=== PATIENT | female | born 1980 | race Hispanic/Latino ===

== ENCOUNTER 2018-11-23 14:11 | Observation (INO) | payer SELFPAY ==
[~2018-11-23] VITALS: Ht 160 cm; Wt 83.9 kg
[2018-11-23] MEDS ORDERED: ONDANSETRON ODT 4 MG TAB ONE (15:16)
[2018-11-23] MEDS ORDERED: FAMOTIDINE 20MG TAB 20 MG TAB ONE (15:16)
[2018-11-23 15:23] LABS: BASOPHILS % (AUTO) 0.2 % (0.0-5.0); EOSINOPHILS % (AUTO) 0.2 % (0.0-8.0); HEMATOCRIT 38.8 % (36-48); LYMPHOCYTES % (AUTO) 8.9 % (21.0-51.0); MEAN CORPUSCULAR HEMOGLOBIN 31.3 pg (27.0-33.0); MEAN CORPUSCULAR HGB CONC 34.1 g/dL (32.0-36.0); MEAN CORPUSCULAR VOLUME 91.7 fL (79-99); MONOCYTES % (AUTO) 6.2 % (3.0-13.0); NEUTROPHILS % (AUTO) 84.5 % (40.0-77.0); PLATELET COUNT (AUTO) 240 K/uL (130-400); RED BLOOD CELL COUNT(AUTO) 4.23 MIL/uL (4.00-5.50); RED CELL DISTRIBUTION WIDTH 12.8 % (11.0-15.5); WHITE BLOOD COUNT (AUTO) 13.8 K/uL (4.8-10.8)
[2018-11-23 15:26] LABS: APPEARANCE,URINE Clear (CLEAR); BILIRUBIN,URINE Negative (NEGATIVE); COLOR,URINE Yellow (YELLOW); GLUCOSE, URINE (UA) Negative (NEGATIVE); KETONES,URINE Negative (NEGATIVE); LEUKOCYTE ESTERASE ,URINE Trace (NEGATIVE); NITRATE,URINE Negative (NEGATIVE); OCCULT BLOOD,URINE Negative (NEGATIVE); PROTEIN,URINE Negative (NEGATIVE)
[2018-11-23 15:35] LABS: CREATININE 0.8 mg/dL (0.5-1.5); POTASSIUM 3.6 mmol/L (3.5-5.1)
[2018-11-23 15:46] LABS: ALBUMIN 3.4 g/dL (3.5-5.0); BILIRUBIN,TOTAL 0.8 mg/dL (0.2-1.0); TOTAL PROTEIN, SERUM 6.8 g/dL (6.0-8.3)
[2018-11-23 15:54] LABS: BACTERIA,URINE Few /HPF (None Seen); MUCUS,URINE Few LPF (None Seen)
[2018-11-23] MEDS ORDERED: KETOROLAC TROMETHAMINE 15MG/ML ONE (16:35)
[2018-11-23] MEDS ORDERED: DICYCLOMINE HCL 10 MG/ML 2ML AMP IM ONE (16:35)
[2018-11-23] MEDS ORDERED: SODIUM CHLORIDE 0.9% 1000ML 1,000 ML IV ONE ×2 (16:35→19:04)
[2018-11-23] MEDS ORDERED: SODIUM CHLORIDE 0.9% 1000ML 1,000 ML IV SCH (18:28)
[2018-11-23] MEDS ORDERED: ONDANSETRON HCL 4 MG/2 ML VIAL IV PRN (18:30)
[2018-11-23] MEDS ORDERED: KETOROLAC TROMETHAMINE 15MG/ML IV PRN (18:30)
[2018-11-23] MEDS ORDERED: ACETAMINOPHEN 325 MG TAB PO PRN ×2 (18:30)
[2018-11-23] MEDS ORDERED: LEVOFLOXACIN 500 MG/D5W 100 ML 100 ML IV SCH (18:45)
[2018-11-23] MEDS ORDERED: LEVOFLOXACIN 500 MG/D5W 100 ML 100 ML ONE (19:46)
[2018-11-23] MEDS ORDERED: FAMOTIDINE/PF 20 MG/2 ML VIAL IV SCH (21:00)
[2018-11-24 04:43] LABS: BASOPHILS % (AUTO) 0.7 % (0.0-5.0); EOSINOPHILS % (AUTO) 1.7 % (0.0-8.0); HEMATOCRIT 38.2 % (36-48); LYMPHOCYTES % (AUTO) 19.5 % (21.0-51.0); MEAN CORPUSCULAR HEMOGLOBIN 32.2 pg (27.0-33.0); MEAN CORPUSCULAR HGB CONC 34.8 g/dL (32.0-36.0); MEAN CORPUSCULAR VOLUME 92.7 fL (79-99); MONOCYTES % (AUTO) 8.8 % (3.0-13.0); NEUTROPHILS % (AUTO) 69.3 % (40.0-77.0); NUCLEATED RED BLOOD CELLS 0.1 % (0.0-0.19); PLATELET COUNT (AUTO) 213 K/uL (130-400); RED BLOOD CELL COUNT(AUTO) 4.12 MIL/uL (4.00-5.50); RED CELL DISTRIBUTION WIDTH 12.6 % (11.0-15.5); WHITE BLOOD COUNT (AUTO) 4.8 K/uL (4.8-10.8)
[2018-11-24 04:49] LABS: CREATININE 0.7 mg/dL (0.5-1.5)
[2018-11-24] MEDS ORDERED: FAMOTIDINE/PF 20 MG/2 ML VIAL IV ONE (10:10)
--- NOTE | 2018-11-24 10:40 | NUR ---
DCP:[facility] met with pt and her carol Neri [id number]. Pt lives independently with her fiance, she works, drives, no DME or in home care services. Pt is seen at [facility]. Denies tx needs. Plan is home at tx. Addendum: 11/24/18 at 1044 by BRIAN SCHROEDER SS Amended: Links added.
[2018-11-24] MEDS ORDERED: LEVO500T2 PO (11:03)
[2018-11-24] MEDS ORDERED: METR500T PO (11:04)
[2018-11-24] MEDS ORDERED: ONDA8TAB5 PO (11:04)
[2018-11-24] MEDS ORDERED: MO6B PO (11:04)
--- NOTE | 2018-11-24 12:31 | NUR ---
PT DENIES TAKING ANY HOME MEDS PRIOR TO ADMIT
--- NOTE | 2018-11-24 12:40 | NUR ---
dc dc instructions given to pt and pts spouse with rx x 4, instructed on new med regimen and to followup with pcp to get referral for general surgery for surgery pt / spouse verbalized understanding , piv removed to right ac, site asymptomatic, catheter intact,
--- NOTE | 2018-11-24 12:47 | NUR ---
dc pt dc home , accompanied by spouse pt denied any pain or discomforts.
== END 2018-11-24 13:24 | disposition home or self-care (01) ==
LOC: EDH 14:11 → EDHIP 14:12
PROVIDERS: ADMIT Internal Medicine; ATTEND Internal Medicine
DX: K80.20 Calculus of gallbladder without cholecystitis without obstruction (principal); E44.0 Moderate protein-calorie malnutrition; N39.0 Urinary tract infection, site not specified; Z79.899 Other long term (current) drug therapy
CPT/HCPCS: 36415 ×2; 74181; 76705; 80048; 80053; 81001; 83690; 84702; 85025 ×2; 99284; G0378 ×19; J0500; J1885; J1956; J3490; J7030 ×2